=== PATIENT | male | born 1975 | race American Indian/Alaskan Native ===

== ENCOUNTER 2016-08-05 13:56 | Outpatient (CLI) | payer MEDICARE | END 2016-08-05 13:57 | disposition home or self-care (01) | LOC: MRI 13:56 | PROVIDERS: ATTEND Specialist | DX: Q79.6 Ehlers-Danlos syndromes (principal) | CPT/HCPCS: 70547 ==

== ENCOUNTER 2017-09-29 13:48 | Outpatient (CLI) | payer MEDICARE ==
--- NOTE | 2017-10-02 16:06 | Magnetic Resonance Report ---
MR angiography is performed of the great vessels of the neck 2-D time of flight spoiled grass images were obtained of the great vessels of the neck. Images of the carotid circulation showed both carotids to be patent but there was irregularity in the left internal carotid just distal to the bifurcation with a suggestion of aneurysm formation. the right side was normal but the study did not go cephalad enough to visualize the previous abnormalities. The vertebral arteries well seen and were unremarkable. Impression: Abnormal MR angiography of the cervical circulation. 1. left internal carotid aneurysm 2. the study did not go far enough cephalad to visualize the entire carotid circulation
== END 2017-09-29 13:49 | disposition home or self-care (01) ==
LOC: MRI 13:48
PROVIDERS: ATTEND Specialist
DX: I72.0 Aneurysm of carotid artery (principal)
CPT/HCPCS: 70547

== ENCOUNTER 2017-10-14 15:30 | Outpatient (CLI) | payer MEDICARE ==
--- NOTE | 2017-10-30 13:28 | Magnetic Resonance Report ---
MR angiography is performed of the great vessels of the neck 2-D time of flight spoiled grass images were obtained of the great vessels of the neck. Images of the carotid circulation showed both carotids to be patent without any evidence of occlusive disease. The vertebral arteries well seen and were unremarkable. There was a small aneurysm of the left internal carotid just distal to the bifurcation that has not changed over the past year. Impression: Abnormal MR angiography of the cervical circulation showing a small aneurysm of the left internal carotid just distal to the bifurcation in the neck that has not changed over the past year. This study did not extend cephalad sufficiently to visualize the entire precranial carotid system
== END 2017-10-14 15:31 | disposition home or self-care (01) ==
LOC: MRI 15:30
PROVIDERS: ATTEND Specialist
DX: I72.0 Aneurysm of carotid artery (principal); Q79.6 Ehlers-Danlos syndromes; N18.9 Chronic kidney disease, unspecified; I12.0 Hypertensive chronic kidney disease with stage 5 chronic kidney disease or end stage renal disease; D72.829 Elevated white blood cell count, unspecified; K21.9 Gastro-esophageal reflux disease without esophagitis; F32.9 Major depressive disorder, single episode, unspecified; Z91.89 Other specified personal risk factors, not elsewhere classified; Z82.49 Family history of ischemic heart disease and other diseases of the circulatory system; Z86.73 Personal history of transient ischemic attack (TIA), and cerebral infarction without residual deficits
CPT/HCPCS: 70547

== ENCOUNTER 2017-11-11 13:28 | Outpatient (CLI) | payer MEDICARE ==
--- NOTE | 2017-11-12 17:48 | Magnetic Resonance Report ---
MR angiogram was performed of the intracranial circulation 3-D [id number] spoiled grass images were obtained of the intracranial circulation. 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 The aneurysm is best seen on the component images. The vertebral basilar system was also patent but the posterior cerebrals were poorly seen. Impression: Abnormal MR angiogram of the intracranial circulation. a. 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 poor visualization of the posterior cerebral arteries this study was compared to the previous study of 2017 and the aneurysm has not changed in size.
== END 2017-11-11 13:29 | disposition home or self-care (01) ==
LOC: MRI 13:28
PROVIDERS: ATTEND Specialist
DX: G40.209 Localization-related (focal) (partial) symptomatic epilepsy and epileptic syndromes with complex partial seizures, not intractable, without status epilepticus (principal); Q79.6 Ehlers-Danlos syndromes; I12.9 Hypertensive chronic kidney disease with stage 1 through stage 4 chronic kidney disease, or unspecified chronic kidney disease; N18.9 Chronic kidney disease, unspecified; K21.9 Gastro-esophageal reflux disease without esophagitis; F32.9 Major depressive disorder, single episode, unspecified; I71.9 Aortic aneurysm of unspecified site, without rupture; Z91.89 Other specified personal risk factors, not elsewhere classified; Z86.73 Personal history of transient ischemic attack (TIA), and cerebral infarction without residual deficits
CPT/HCPCS: 70544